=== PATIENT | male | born 2000 | race Two or more races ===

== ENCOUNTER 2020-09-26 04:45 | Emergency (ER) | payer SELFPAY ==
[~2020-09-26] VITALS: Ht 177.8 cm; Wt 65.8 kg
[2020-09-26 05:00] VITALS: BP 153/91
[2020-09-26] MEDS ORDERED: ASPirin 81 mg TAB PO ONE (06:00)
== END 2020-09-26 07:00 | disposition left against medical advice (07) ==
LOC: ER 04:45 → EDBD 04:45 → ER 07:00
DX: R07.89 Other chest pain (principal); F41.9 Anxiety disorder, unspecified
CPT/HCPCS: 71045; 93005